=== PATIENT | male | born 1950 | race Caucasian/White ===

== ENCOUNTER 2017-03-09 08:51 | Emergency (ER) | payer OTHER ==
[2017-03-09 08:59] VITALS: BP 145/96
--- NOTE | 2017-03-09 09:33 | UC ---
Respiratory Complaint HPI - HPI Summary HPI Summary: PT HAS HAD INCREASE IN COUGH AND FEELING OF CHEST RATTLING/WHEEZE OVER THE PAST 1-2 MONTHS. NO FEVER. COUGH IS KEEPING HIM UP AT NIGHT. ALBUTEROL INHALER NOT HELPING ANYMORE. 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 NO RECENT TRAVEL. NO HEMOPTYSIS. NO SOB. 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 Negative: Dyspnea, Fever, Chills, Pleuritic Chest Pain, Hemoptysis, Dizziness, Calf Pain, Calf Swelling, Edema, URI, Nasal Congestion, Hoarseness, Sinus Discomfort - Allergies/Home Medications Allergies/Adverse Reactions: Allergies Allergy/AdvReac Type Severity Reaction Status Date / Time No Known Allergies Allergy Verified 01/19/16 16:34 PMH/Surg Hx/FS Hx/Imm Hx Cardiovascular History: Hypertension - Surgical History Surgical History: Yes Surgery Procedure, Year, and Place: 1999 - Cardiac ablation for SVT [place]. 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 Right hand skin grafts 2014 - Family History Known Family History: Positive: Cardiac Disease, Hypertension - Social History Alcohol Use: Rare Alcohol Amount: 1-2 Substance Use Type: None Smoking Status (MU): Former Smoker Type: Cigarettes Length of Time of Smoking/Using Tobacco: 20 YRS Have You Smoked in the Last Year: No When Did the Patient Quit Smoking/Using Tobacco: Quit 1984 - Immunization History Most Recent Influenza Vaccination: Fall 2012 Most Recent Tetanus Shot: 09/09/14 Most Recent Pneumonia Vaccination: never Review of Systems Constitutional: Negative Skin: Negative ENT: Negative Respiratory: Cough Cardiovascular: Negative All Other Systems Reviewed And Are Negative: Yes Physical Exam Triage Information Reviewed: Yes Appearance: Well-Appearing, No Pain Distress, Well-Nourished Vital Signs: Initial Vital Signs Temp 97.8 F 03/09/17 08:53 Pulse 72 03/09/17 08:53 Resp 18 03/09/17 08:53 BP 145/96 03/09/17 08:53 Pulse Ox 99 03/09/17 08:53 Vital Signs Reviewed: Yes Eyes: Positive: Conjunctiva Clear ENT: Positive: Hearing grossly normal, Pharynx normal, TMs normal Neck: Positive: Supple, Nontender, No Lymphadenopathy Respiratory: Positive: No respiratory distress, No accessory muscle use, Other: - RATTLY LUNG SOUNDS BASES Cardiovascular Exam: Normal Abdomen Description: Positive: Soft Musculoskeletal: Positive: No Edema Neurological: Positive: Alert Psychological: Positive: Normal Response To Family, Age Appropriate Behavior Skin: Negative: rashes UC Diagnostic Evaluation - Laboratory O2 Sat by Pulse Oximetry: 99 - Radiology Xray Interpretation: Positive (See Comments) - TRACE LEFT PLEURAL EFFUSION VERSUS PLEURAL THICKENING ON CXR Radiology Interpretation Completed By: Radiologist Respiratory Course/Dx - Differential Dx/Diagnosis Provider Diagnoses: COUGH/LEFT PLEURAL EFFUSION VERSUS PLEURAL THICKENING Discharge - Discharge Plan Condition: Stable Disposition: HOME Prescriptions: Azithromycin [Azithromycin 500 MG TAB] 500 mg PO DAILY #5 tab Patient Education Materials: Pleural Effusion (ED), Chronic Cough (ED) Referrals: Melissa Duque MD [Medical Doctor] - Raymond Ford NP [Nurse Practitioner] - 2 Days Additional Instructions: PLEURAL EFFUSION VS. PLEURAL THICKENING SEEN ON CHEST XRAY TODAY. YOU WOULD LIKELY BENEFIT FROM A CT SCAN FOR FURTHER EVALUATION. CALL YOUR NEW PCP TOMORROW MORNING FOR AN APPT. YOU MAY ALSO CALL PULMONOLOGY (DR. DUQUE) FOR AN APPT. NO CLEAR INDICATION FOR ANTIBIOTICS BUT IF YOUR SYMPTOMS DO NOT IMPROVE AND YOU CAN NOT BE SEEN BY YOUR PCP OR CARE PROGRAM DIRECTOR PROMPTLY, OKAY TO FILL RX FOR ANTIBIOTIC TO SEE IF IT IS HELPFUL. IF YOU START IT TAKE IT FOR THE FULL 5 DAYS. GO TO ER WITHOUT FAIL IF YOU COUGH UP BLOOD OR DEVELOP CHEST PAIN, SHORTNESS OF BREATH, NAUSEA, SWEATS, FEVER, DIZZINESS OR ANY OTHER CONCERNING SYMPTOMS.
--- NOTE | 2017-03-09 10:11 | RAD ---
INDICATION: Cough. COMPARISON: Comparison is made with prior studies from December 06, 2007 and June 09, 2014. TECHNIQUE: Dual-energy PA and lateral views of the chest were obtained. FINDINGS: The heart is within normal limits in size. There is bilateral apical pleural-parenchymal scarring which is unchanged. There is slight increased density in the right paratracheal region which is unchanged from the prior 2 exams. The lungs are otherwise clear. There is blunting of the left posterior costophrenic angle suggestive of a trace pleural effusion versus pleural thickening. IMPRESSION: TRACE LEFT PLEURAL EFFUSION VERSUS PLEURAL THICKENING.
== END 2017-03-09 10:50 | disposition home or self-care (01) ==
LOC: UCEAST 08:51
DX: R05 Cough (principal); R91.8 Other nonspecific abnormal finding of lung field; I10 Essential (primary) hypertension; H54.41 Blindness, right eye, normal vision left eye; Z87.891 Personal history of nicotine dependence
CPT/HCPCS: 71020; 99212; G0463

== ENCOUNTER 2017-03-14 19:03 | Emergency (ER) | payer OTHER ==
--- NOTE | 2017-03-14 21:19 | RAD ---
INDICATION: Productive cough for 3 weeks. Presyncope. History of tobacco use. COMPARISON: March 09, 2017 TECHNIQUE: Dual energy PA and routine lateral views of the chest were obtained. REPORT: Elevated lung volumes and both diffuse mild prominence of the interstitial markings and patchy rarefaction of the mid to upper lung zone interstitial markings. Mild apical pleural-parenchymal scarring. No alveolar consolidation suspicious for pneumonia, focal pulmonary lesion, pleural effusion, pneumothorax. The heart, pulmonary vasculature, and mediastinal contours are unremarkable. No rib fracture evident. IMPRESSION: Stigmata of obstructive lung disease. No acute pulmonary or cardiac process evident.
[2017-03-14 21:21] LABS: Hematocrit 44 % (42-52); Hemoglobin 14.8 g/dl (14.0-18.0); Mean Corpuscular HGB Conc 34 g/dl (31-36); Mean Corpuscular Hemoglobin 32 pg (27-31); Mean Corpuscular Volume 95 fL (80-94); Mean Platelet Volume 10 um3 (7.4-10.4); Red Blood Count 4.66 10^6/ul (4.0-5.4); Red Cell Distribution Width 13 % (10.5-15); White Blood Count 7.6 10^3/ul (3.5-10.8)
--- NOTE | 2017-03-14 21:30 | ED ---
Herbie Portillo Thomas, scribed for Riley Blandon MD on 03/14/17 at 2039 . Complex/Multi-Sys Presentation - HPI Summary HPI Summary: The pt is a 66 y/o M c/o a nonproductive cough that began 3 weeks ago. The cough has become progressively worse since onset, and has been its worst today. He additionally c/o near-syncope and "hands shaking and feet shaking". Five days ago, he was a patient at [facility] and had an CXR that revealed trace left pleural effusion versus pleural thickening. He was prescribed Abx for 5 days. He is scheduled for a CT scan but the first available appointment is on April 10. The patient is a former smoker and quit 30 years ago. 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 - History Of Current Complaint Chief Complaint: EDSyncope Time Seen by Provider: 03/14/17 20:33 Hx Obtained From: Patient Onset/Duration: Lasting Weeks - a month ago, Still Present, Worse Since - this AM Timing: Constant Associated Signs And Symptoms: Positive: Other - POS: nonproductive cough, "hands and feet shaking", near-syncope - Allergies/Home Medications Allergies/Adverse Reactions: Allergies Allergy/AdvReac Type Severity Reaction Status Date / Time No Known Allergies Allergy Verified 03/14/17 19:20 PMH/Surg Hx/FS Hx/Imm Hx Previously Healthy: No Cardiovascular History: Reports: Hx Hypertension - WELL CONTROLLED, Other Cardiovascular Problems/Disorders - Cardiac ablation 2003 Sensory History: Reports: Hx Contacts or Glasses - Glasses Denies: Hx Hearing Aid Opthamlomology History: Reports: Hx Contacts or Glasses - Glasses - Surgical History Surgery Procedure, Year, and Place: 1999 - Cardiac ablation for SVT [place]. 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 Right hand skin grafts 2014 Hx Anesthesia Reactions: No Infectious Disease History: Denies: Hx Clostridium Difficile, Hx Hepatitis, Hx Human Immunodeficiency Virus (HIV), Hx of Known/Suspected MRSA, Hx Shingles, Hx Tuberculosis, Hx Known/ Suspected VRE, Hx Known/Suspected VRSA, History Other Infectious Disease, Traveled Outside the [place] in Last 30 Days - Family History Known Family History: Positive: Cardiac Disease, Hypertension - Social History Alcohol Use: Rare Alcohol Amount: 1-2 Substance Use Type: Reports: None Hx Tobacco Use: No Smoking Status (MU): Former Smoker Type: Cigarettes Length of Time of Smoking/Using Tobacco: 20 YRS Have You Smoked in the Last Year: No Review of Systems Constitutional: Negative Eyes: Negative ENT: Negative Cardiovascular: Negative Positive: Cough - nonproductive, onset 1 month ago Gastrointestinal: Negative Genitourinary: Negative Musculoskeletal: Negative Skin: Negative Neurological: Other - POS: "hands and feet shaking" Positive: Syncope - near Psychological: Normal All Other Systems Reviewed And Are Negative: Yes Physical Exam Triage Information Reviewed: Yes Vital Signs On Initial Exam: Initial Vitals Temp Pulse Resp BP Pulse Ox 96.9 F 92 20 151/100 97 03/14/17 19:15 03/14/17 19:15 03/14/17 19:15 03/14/17 19:15 03/14/17 19:15 Vital Signs Reviewed: Yes Appearance: Positive: Well-Appearing, No Pain Distress Skin: Positive: Warm Head/Face: Positive: Normal Head/Face Inspection Eyes: Positive: JOVI ENT: Positive: Hearing grossly normal Neck: Positive: Supple Respiratory/Lung Sounds: Positive: Clear to Auscultation, Breath Sounds Present Cardiovascular: Positive: RRR Abdomen Description: Positive: Nontender, Soft Bowel Sounds: Positive: Present Musculoskeletal: Positive: Strength/ROM Intact Neurological: Positive: Alert, Oriented to Person Place, Time Psychiatric: Positive: Affect/Mood Appropriate Diagnostics - Vital Signs Vital Signs Temp Pulse Resp BP Pulse Ox 03/14/17 19:15 96.9 F 92 20 151/100 97 - Laboratory Lab Results: Lab Results 03/14/17 Range/Units 21:10 WBC 7.6 (3.5-10.8) 10^3/ul RBC 4.66 (4.0-5.4) 10^6/ul Hgb 14.8 (14.0-18.0) g/dl Hct 44 (42-52) % MCV 95 H (80-94) fL MCH 32 H (27-31) pg MCHC 34 (31-36) g/dl RDW 13 (10.5-15) % Plt Count 150 (150-450) 10^3/ul MPV 10 (7.4-10.4) um3 Neut % (Auto) 59.5 (38-83) % Lymph % (Auto) 21.7 L (25-47) % Wilson % (Auto) 7.5 (1-9) % Eos % (Auto) 10.8 H (0-6) % Baso % (Auto) 0.5 (0-2) % Absolute Neuts (auto) 4.5 (1.5-7.7) 10^3/ul Absolute Lymphs (auto) 1.6 (1.0-4.8) 10^3/ul Absolute Monos (auto) 0.6 (0-0.8) 10^3/ul Absolute Eos (auto) 0.8 H (0-0.6) 10^3/ul Absolute Basos (auto) 0 (0-0.2) 10^3/ul Absolute Nucleated RBC 0.02 10^3/ul Nucleated RBC % 0.2 Result Diagrams: 03/14/17 21:10 03/14/17 21:10 Lab Statement: Any lab studies that have been ordered have been reviewed, and results considered in the medical decision making process. - Radiology GLASS SETTER Xray Interpretation: No Acute Changes - Stigmata of obstructive lung disease. No acute pulmonary or cardiac process evident. Radiology Interpretation Completed By: Radiologist - CT CT Chest CT Interpretation: No Acute Changes - 1. No evidence for pneumonia. 2. Indeterminant RIGHT suprahilar RIGHT upper lobe and superior segment LEFT lower lobe pulmonary nodules. 3. Enlarged AP window and RIGHT paratracheal lymph nodes. 4. While the noted pulmonary nodules are only borderline large enough for accurate assessment with PET/CT a PET/CT should be considered to attempt to assess the nodules as well as the mediastinal lymph nodes given increased risk for bronchogenic carcinoma due to previous asbestos exposure. CT Interpretation Completed By: Radiologist - EKG 19:26 Cardiac Rate: NL - 82 EKG Interpretation: NSR Re-Evaluation - Re-Evaluation First Eval Re-Evaluation Time: 22:46 Change: Improved - results d/w pt, will f/u with pcp this week Complex Multi-Symp Course/Dx - Diagnoses Provider Diagnoses: Cough Discharge - Discharge Plan Condition: Improved Disposition: HOME Referrals: Kobi Hansen MD [Primary Care Provider] - 3 Days The documentation as recorded by the Herbie ocampo Thomas accurately reflects the service I personally performed and the decisions made by , Riley Blandon MD.
[2017-03-14 21:36] LABS: Albumin 4.1 g/dL (3.2-5.2); BUN/Creatinine Ratio 21.5 (8-20); Calcium 9.8 mg/dL (8.6-10.3); EGFR African American 104.2 (>60); Globulin 2.9 g/dL (2-4); Potassium 3.8 mmol/L (3.5-5.0); Total Bilirubin 0.4 mg/dL (0.2-1.0)
--- NOTE | 2017-03-14 22:40 | RAD ---
INDICATION: Productive cough, shortness of breath, pleural thickening. History of asbestos exposure. On antibiotics. COMPARISON: Chest radiograph of the same date TECHNIQUE: Multidetector CT images were obtained from the lung apices to the upper abdomen. Evaluation of the viscera is limited without IV contrast. REPORT: Mild apical pleural-parenchymal scarring. Small calcified granuloma at the lateral segment of the RIGHT middle lobe. 0.6 cm axial plane maximum dimension by 0.8 cm maximum dimension cephalocaudal noncalcified nodule at the RIGHT suprahilar region of the RIGHT upper lobe reference image 25. 0.6 cm maximum dimension. Fissural nodule at the superior segment of the LEFT lower lobe reference image 39. Negative for pleural effusions. 1.1 cm short axis RIGHT paratracheal lymph node. 0.9 cm short axis subcarinal lymph node. 1.5 cm short axis AP window lymph node. Negative for cardiomegaly or pericardial effusion. Mild prominence of the ascending segment of the thoracic aorta measuring up to 4.1 cm diameter at the level of the aortic arch. Unremarkable Limited images through the upper abdomen. Negative for suspicious thoracic osseous lesions. Rhodes images saved on the [facility]ACS. IMPRESSION: 1. No evidence for pneumonia. 2. Indeterminant RIGHT suprahilar RIGHT upper lobe and superior segment LEFT lower lobe pulmonary nodules. 3. Enlarged AP window and RIGHT paratracheal lymph nodes. 4. While the noted pulmonary nodules are only borderline large enough for accurate assessment with PET/CT a PET/CT should be considered to attempt to assess the nodules as well as the mediastinal lymph nodes given increased risk for bronchogenic carcinoma due to previous asbestos exposure.
[2017-03-14 23:34] VITALS: BP 130/87
== END 2017-03-14 23:33 | disposition home or self-care (01) ==
LOC: ED 19:03
DX: R05 Cough (principal); R55 Syncope and collapse; Z87.891 Personal history of nicotine dependence
CPT/HCPCS: 36415; 71020; 71250; 80053; 83605; 85025; 93005; 99282

== ENCOUNTER 2017-04-02 12:03 | Day surgery (SDC) | payer OTHER ==
[~2017-04-02 12:03] MED LIST: Buffered Lidocaine 0.9% SYRIN* 5 ML/SYR SYRINGE INTRADERM ONE; Famotidine IV* 10 MG/ML 2 ML (20 mg) IV ONE
[2017-04-02] MEDS ORDERED: Famotidine IV* 10 MG/ML 2 ML (20 mg) ONE (12:13)
[2017-04-02] MEDS ORDERED: Buffered Lidocaine 0.9% SYRIN* 5 ML/SYR SYRINGE ONE (12:13)
[2017-04-02] MEDS ORDERED: Levalbuterol 1.25MG/0.5ML NEB ONE (12:42)
[2017-04-02] MEDS ORDERED: Levalbuterol 0.63MG/3ML NEB INH ONE (12:48)
[2017-04-02] MEDS ORDERED: DiMENhydriNATE IV* 50 MG/ML VIAL IV PUSH PRN (12:49)
[2017-04-02] MEDS ORDERED: Acetaminophen TAB* 325 MG PO PRN (12:49)
[2017-04-02] MEDS ORDERED: oxyCODONE TAB* 5 MG TAB PO PRN (12:49)
[2017-04-02] MEDS ORDERED: HYDROmorphone* 1 MG/ML 1 ML SYR IV PRN (12:49)
[2017-04-02] MEDS ORDERED: Propofol* 10 MG/ML 20 ML BTL IV PUSH ONE (12:55)
[2017-04-02] MEDS ORDERED: Dexamethasone IV* 4 MG/ML 1 ML (4 MG) ONE (12:55)
[2017-04-02] MEDS ORDERED: fentaNYL* 50 MCG/ML 2 ML VIAL (100 MCG VIAL) ONE ×2 (12:55→13:27)
[2017-04-02] MEDS ORDERED: Midazolam* 1 MG/ML 5 ML VIAL (5 MG) ONE (12:55)
[2017-04-02] MEDS ORDERED: Lidocaine 2% PF * 5 ML VIAL ONE (12:55)
[2017-04-02] MEDS ORDERED: Ondansetron INJ* 2 MG/ML VIAL ONE (12:55)
[2017-04-02] MEDS ORDERED: Succinylcholine* 20 MG/ML 10 ML VIAL ONE (13:00)
[2017-04-02 15:26] VITALS: BP 128/72
--- NOTE | 2017-04-03 12:18 | PRO ---
BRONCHOSCOPY REPORT: DATE OF PROCEDURE: 04/02/17 PROCEDURE PERFORMED: Bronchoscopy with endobronchial ultrasound-guided fine- needle aspiration from station R4, L4, and station 7 lymph nodes. PREPROCEDURAL DIAGNOSES: Cough, mediastinal and hilar adenopathy. ANESTHESIA: General anesthesia, refer to anesthesiologist's note for further details. ANESTHESIOLOGIST: Dr. Marilou Cuellar. PROCEDURE IN DETAIL: Informed consent was obtained from the patient after all the risks and benefits of procedure were thoroughly explained. The patient with complaint of cough, mostly dry in nature with evidence of mediastinal adenopathy. The patient was placed supine on the operating room table. Time- out was agreed on by attending staff. The patient was intubated with size 8.0 endotracheal tube. Bronchoscope was inserted through endotracheal tube. Endotracheal tube positioning was confirmed to be 2 cm above the level of mariella. No endobronchial lesions were noted. Thin secretions were noted and were suctioned out. There is evidence of bronchomalacia. Bronchoscope was then withdrawn and EBUS bronchoscope was inserted. R4 lymph node was enlarged and was accessed with 3 passes. Rapid on- site evaluation revealed lymphatic tissue with no granulomata or malignant cells. Specimen was also placed in RPMI for evaluation of lymphoma. L4 lymph node was accessed with 2 passes. Rapid on -site evaluation revealed adequate lymphatic tissue, no malignant cells or granulomata was seen. Normal-appearing lymphatic tissue was noted. Station 7 was accessed with 2 passes. Rapid on-site evaluation revealed lymphatic tissue , normal appearing and no malignant cells or granulomata. EBUS bronchoscopy was then withdrawn. The patient tolerated the procedure well. He was extubated and seen in recovery area in optimal condition. Specimen was sent to the lab for cytological and flow cytometry evaluation. [id number]/[facility] #: [id number] [facility]
== END 2017-04-02 15:00 | disposition home or self-care (01) ==
LOC: OR 12:03
PROVIDERS: ATTEND Internal Medicine
DX: R59.0 Localized enlarged lymph nodes (principal); R93.8 Abnormal findings on diagnostic imaging of other specified body structures; J44.9 Chronic obstructive pulmonary disease, unspecified; Z87.891 Personal history of nicotine dependence; I10 Essential (primary) hypertension; Z77.090 Contact with and (suspected) exposure to asbestos
CPT/HCPCS: 88172; 88173; 88177; 88184; 88185; 88188; 88305; A9270-GY; J0330; J1100; J2250; J2405; J2704; J3010

== ENCOUNTER 2017-05-21 08:25 | Emergency (ER) | payer OTHER ==
[2017-05-21] MEDS ORDERED: Meclizine TAB* 12.5 MG PO ONE (10:21)
[2017-05-21] MEDS ORDERED: NS 0.9% 1000 ML* 2,000 ML IV ONE (10:21)
[2017-05-21] MEDS ORDERED: Ondansetron INJ* 2 MG/ML VIAL IV ONE (10:21)
[2017-05-21 10:43] LABS: Hematocrit 47 % (42-52); Hemoglobin 16.1 g/dl (14.0-18.0); Mean Corpuscular HGB Conc 34 g/dl (31-36); Mean Corpuscular Hemoglobin 32 pg (27-31); Mean Corpuscular Volume 93 fL (80-94); Mean Platelet Volume 9 um3 (7.4-10.4); Red Blood Count 5.05 10^6/ul (4.0-5.4); Red Cell Distribution Width 13 % (10.5-15); White Blood Count 10.8 10^3/ul (3.5-10.8)
--- NOTE | 2017-05-21 10:54 | RAD ---
INDICATION: Pneumonia, CHF. COMPARISON: Comparison is made with a prior chest x-ray study from March 14, 2017. TECHNIQUE: A portable view of the chest was obtained. FINDINGS: Cardiac and mediastinal contours appear to be within normal limits. The lungs are clear. No pleural effusion is seen. IMPRESSION: NO EVIDENCE FOR ACUTE DISEASE.
[2017-05-21 11:03] LABS: Albumin 4.1 g/dL (3.2-5.2); BUN/Creatinine Ratio 16.5 (8-20); C Reactive Protein 4.19 mg/L (< 5.00); Calcium 10.3 mg/dL (8.6-10.3); EGFR African American 106.9 (>60); EGFR Non-African American 83.1 (>60); Globulin 3.7 g/dL (2-4); Potassium 4.4 mmol/L (3.5-5.0); Total Bilirubin 0.6 mg/dL (0.2-1.0); Total Protein 7.8 g/dL (6.4-8.9)
[2017-05-21 11:08] LABS: Urine Bilirubin Negative (Negative); Urine Glucose Negative (Negative); Urine Nitrite Negative (Negative)
--- NOTE | 2017-05-21 11:11 | RAD ---
INDICATION: Dizziness. COMPARISON: There are no prior studies available for comparison. TECHNIQUE: Contiguous axial sections of the brain were obtained from the skull base to the vertex without contrast. FINDINGS: The ventricles, cisterns and sulci are within normal limits. There is a small focal area of decreased attenuation adjacent to the frontal horn of the left lateral ventricle suggestive of an old lacunar infarct. No other focal abnormalities or mass effect are seen. There is no evidence for hemorrhage. No significant focal osseous abnormality is seen. The visualized portion of the paranasal sinuses and mastoid air cells appear clear. IMPRESSION: 1. NO EVIDENCE FOR GROSS ACUTE INFARCT, MASS EFFECT OR HEMORRHAGE. 2. 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
[2017-05-21 11:23] LABS: TSH (Thyroid Stimulating Horm) 1.2 mcIU/mL (0.34-5.60)
[2017-05-21 13:06] VITALS: BP 128/68
--- NOTE | 2017-05-21 15:45 | ED ---
Leland Portillo Angela, scribed for Denys Jean MD on 05/21/17 at 1014 . Dizziness - HPI Summary HPI Summary: This pt is a 5 y/o male presenting to [facility] c/o sudden onset of dizziness and nausea while sitting at his desk today at 0745. He notes associated symptoms of diaphoresis. Pt reports that at onset he felt the room was spinning, but later felt like passing out. Pt states that movement and position change exacerbates his dizziness. He states he was well yesterday and that this has never happened to him before. Pt denies chest pain, SOB, slurred speech, inability to walk, rhinorrhea, cough, cold. He reports a ringing in his ear that is chronic. Pt walks 3-4 miles a day for work. He notes a PMHx of cardiac ablasion for tachycardia 10 years ago, but since then he has been doing well. Pt take anti- hypertensive medications. Pt notes losing his right eye at the age of 1 when glass got inside his eye. 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 Negative: Vomiting, Chest Pain, SOB, Palpitations, Unsteady Gait, Inability to Walk, Slurred Speech - Allergies/Home Medications Allergies/Adverse Reactions: Allergies Allergy/AdvReac Type Severity Reaction Status Date / Time No Known Allergies Allergy Verified 04/02/17 12:17 PMH/Surg Hx/FS Hx/Imm Hx Cardiovascular History: Reports: Hx Hypertension - on med, Other Cardiovascular Problems/Disorders - Cardiac ablation for SVT 1999 - [place] Sensory History: Reports: Hx Contacts or Glasses - Glasses Denies: Hx Hearing Aid Opthamlomology History: Reports: Hx Contacts or Glasses - Glasses - Surgical History Surgery Procedure, Year, and Place: 1999 - Cardiac ablation for SVT [place]. 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 [place] [facility] [place] Anesthesia Reactions: No Infectious Disease History: No Infectious Disease History: Denies: Hx Clostridium Difficile, Hx Hepatitis, Hx Human Immunodeficiency Virus (HIV), Hx of Known/Suspected MRSA, Hx Shingles, Hx Tuberculosis, Hx Known/ Suspected VRE, Hx Known/Suspected VRSA, History Other Infectious Disease, Traveled Outside the [place] in Last 30 Days - Family History Known Family History: Positive: Cardiac Disease, Hypertension - Social History Alcohol Use: Occasionally Alcohol Amount: 2-3 BEERS PER WEEK Substance Use Type: Reports: None Hx Tobacco Use: No Smoking Status (MU): Former Smoker Type: Cigarettes Amount Used/How Often: 1 PPD FOR 20 YEARS Length of Time of Smoking/Using Tobacco: 20 YRS Have You Smoked in the Last Year: No Review of Systems Positive: Skin Diaphoresis. Negative: Fever, Chills Eyes: Negative ENT: Negative Negative: Chest Pain Negative: Shortness Of Breath Positive: Nausea Genitourinary: Negative Musculoskeletal: Negative Skin: Negative Neurological: Other - dizziness Negative: Slurred Speech All Other Systems Reviewed And Are Negative: Yes Physical Exam - Summary Physical Exam Summary: The patient is well-nourished in no acute distress and in no acute pain. The skin is warm and skin color reflects adequate perfusion. Patient is a little clammy but not diaphoretic. HEENT: The head is normocephalic and atraumatic. The pupil on the right is nj , does follow but is unable to see. The pupil on the left has nystagmus. The conjunctivae are clear and without drainage. Nares are patent and without drainage. Mouth reveals moist mucous membranes and the throat is without erythema and exudate. The external ears are intact. The ear canals are patent and without drainage. The tympanic membranes are intact. Neck is supple with full range of motion and non-tender. Respiratory: Chest is non-tender. Lungs are clear to auscultation and breath sounds are symmetrical and equal. Cardiovascular: Hear is regular rate and rhythm. There is no murmur or rub auscultated. There is no peripheral edema and pulses are symmetrical and equal. There are good pulses distally. Abdomen: The abdomen is soft and non-tender. There are normal bowel sounds heard in all four quadrants. Musculoskeletal: There is no back pain noted. Extremities are non-tender with full range of motion. There is good capillary refill. There is no peripheral edema or calf tenderness elicited. Neurological: Patient is alert and oriented to person, place and time. The patient has symmetrical motor strength in all four extremities. There is no motor weakness in the upper extremities and lower extremities. Psychiatric: The patient has an appropriate affect and does not exhibit any anxiety or depression. Triage Information Reviewed: Yes Vital Signs On Initial Exam: Initial Vitals Temp Pulse Resp BP Pulse Ox 97.4 F 60 17 151/94 98 05/21/17 08:28 05/21/17 08:28 05/21/17 08:28 05/21/17 08:28 05/21/17 08:28 Vital Signs Reviewed: Yes - [place] Coma Scale Best Eye Response: 4 - Spontaneous Best Motor Response: 6 - Obeys Commands Best Verbal Response: 5 - Oriented Coma Scale Total: 15 Diagnostics - Vital Signs Vital Signs Temp Pulse Resp BP Pulse Ox 05/21/17 09:00 58 18 97 05/21/17 08:35 60 18 99 05/21/17 08:30 97.4 F 60 17 151/94 98 05/21/17 08:28 97.4 F 60 17 151/94 98 - Laboratory Lab Results: Lab Results 05/21/17 05/21/17 05/21/17 Range/Units 10:28 10:28 10:28 WBC 10.8 (3.5-10.8) 10^3/ul RBC 5.05 (4.0-5.4) 10^6/ul Hgb 16.1 (14.0-18.0) g/dl Hct 47 (42-52) % MCV 93 (80-94) fL MCH 32 H (27-31) pg MCHC 34 (31-36) g/dl RDW 13 (10.5-15) % Plt Count 229 (150-450) 10^3/ul MPV 9 (7.4-10.4) um3 Neut % (Auto) 84.6 H (38-83) % Lymph % (Auto) 9.1 L (25-47) % Lander % (Auto) 4.7 (1-9) % Eos % (Auto) 1.2 (0-6) % Baso % (Auto) 0.4 (0-2) % Absolute Neuts (auto) 9.1 H (1.5-7.7) 10^3/ul Absolute Lymphs (auto) 1.0 (1.0-4.8) 10^3/ul Absolute Monos (auto) 0.5 (0-0.8) 10^3/ul Absolute Eos (auto) 0.1 (0-0.6) 10^3/ul Absolute Basos (auto) 0 (0-0.2) 10^3/ul Absolute Nucleated RBC 0 10^3/ul Nucleated RBC % 0 Sodium 136 (133-145) mmol/L Potassium 4.4 (3.5-5.0) mmol/L Chloride 101 (101-111) mmol/L Carbon Dioxide 28 (22-32) mmol/L Anion Gap 7 (2-11) mmol/L BUN 15 (6-24) mg/dL Creatinine 0.91 (0.67-1.17) mg/dL Est GFR ( Amer) 106.9 (>60) Est GFR (Non-Af Amer) 83.1 (>60) BUN/Creatinine Ratio 16.5 (8-20) Glucose 104 H (70-100) mg/dL Lactic Acid (0.5-2.0) mmol/L Calcium 10.3 (8.6-10.3) mg/dL Magnesium 2.0 (1.9-2.7) mg/dL Total Bilirubin 0.60 (0.2-1.0) mg/dL AST 19 (13-39) U/L ALT 21 (7-52) U/L Alkaline Phosphatase 61 (34-104) U/L Troponin I 0.00 (<0.04) ng/mL C-Reactive Protein 4.19 (< 5.00) mg/L B-Natriuretic Peptide 28 ( - 100) pg/mL Total Protein 7.8 (6.4-8.9) g/dL Albumin 4.1 (3.2-5.2) g/dL Globulin 3.7 (2-4) g/dL Albumin/Globulin Ratio 1.1 (1-3) TSH 1.20 (0.34-5.60) mcIU/mL Urine Color Urine Appearance Urine pH (5-9) Ur Specific [place] (1.010-1.030) Urine Protein (Negative) Urine Ketones (Negative) Urine Blood (Negative) Urine Nitrate (Negative) Urine Bilirubin (Negative) Urine Urobilinogen (Negative) Ur Leukocyte Esterase (Negative) Urine Glucose (Negative) 05/21/17 05/21/17 Range/Units 10:28 10:40 WBC (3.5-10.8) 10^3/ul RBC (4.0-5.4) 10^6/ul Hgb (14.0-18.0) g/dl Hct (42-52) % MCV (80-94) fL MCH (27-31) pg MCHC (31-36) g/dl RDW (10.5-15) % Plt Count (150-450) 10^3/ul MPV (7.4-10.4) um3 Neut % (Auto) (38-83) % Lymph % (Auto) (25-47) % Lander % (Auto) (1-9) % Eos % (Auto) (0-6) % Baso % (Auto) (0-2) % Absolute Neuts (auto) (1.5-7.7) 10^3/ul Absolute Lymphs (auto) (1.0-4.8) 10^3/ul Absolute Monos (auto) (0-0.8) 10^3/ul Absolute Eos (auto) (0-0.6) 10^3/ul Absolute Basos (auto) (0-0.2) 10^3/ul Absolute Nucleated RBC 10^3/ul Nucleated RBC % Sodium (133-145) mmol/L Potassium (3.5-5.0) mmol/L Chloride (101-111) mmol/L Carbon Dioxide (22-32) mmol/L Anion Gap (2-11) mmol/L BUN (6-24) mg/dL Creatinine (0.67-1.17) mg/dL Est GFR ( Amer) (>60) Est GFR (Non-Af Amer) (>60) BUN/Creatinine Ratio (8-20) Glucose (70-100) mg/dL Lactic Acid 1.2 (0.5-2.0) mmol/L Calcium (8.6-10.3) mg/dL Magnesium (1.9-2.7) mg/dL Total Bilirubin (0.2-1.0) mg/dL AST (13-39) U/L ALT (7-52) U/L Alkaline Phosphatase (34-104) U/L Troponin I (<0.04) ng/mL C-Reactive Protein (< 5.00) mg/L B-Natriuretic Peptide ( - 100) pg/mL Total Protein (6.4-8.9) g/dL Albumin (3.2-5.2) g/dL Globulin (2-4) g/dL Albumin/Globulin Ratio (1-3) TSH (0.34-5.60) mcIU/mL Urine Color Yellow Urine Appearance Cloudy Urine pH 7.0 (5-9) Ur Specific [place] 1.011 (1.010-1.030) Urine Protein Negative (Negative) Urine Ketones Negative (Negative) Urine Blood Negative (Negative) Urine Nitrate Negative (Negative) Urine Bilirubin Negative (Negative) Urine Urobilinogen Negative (Negative) Ur Leukocyte Esterase Negative (Negative) Urine Glucose Negative (Negative) Result Diagrams: 05/21/17 10:28 05/21/17 10:28 Lab Statement: Any lab studies that have been ordered have been reviewed, and results considered in the medical decision making process. - Radiology Chest XR Xray Interpretation: No Acute Changes - IMPRESSION: No evidence for acute disease. ED physician has reviewed this radiology report and agrees. Radiology Interpretation Completed By: Radiologist - CT Brain CT CT Interpretation: No Acute Changes - IMPRESSION: 1. No evidence for gross acute infarct, mass effect or hemorrhage. 2. 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 ED physician has reviewed this radiology report and agrees. CT Interpretation Completed By: Radiologist - EKG 0827 Cardiac Rate: NL - 61 bpm EKG Rhythm: Sinus Rhythm EKG Interpretation: No ST Elevation. Normal axis. No STEMI. Re-Evaluation - Re-Evaluation First Eval Re-Evaluation Time: 12:33 Comment: Pt is feeling much better. He is feeling some residual dizziness. Dizzy Course/Dx - Course Assessment/Plan: Elevated BP noted. Labs, EKG, chest XR, and CT brain were obtained. In the ED course, pt was given IV fluids, zofran, and meclizine. Chest XR shows no evidence for acute disease. Brain CT reveals 1. no evidence for gross acute infarct, mass effect or hemorrhage. 2. 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 UA is negative. Pt will be discharged home in stable condition. - Diagnoses Differential Diagnosis/HQI/PQRI: Benign Paroxysmal Positional Vertigo, Coronary Artery Disease, CVA, Hypovolemia, Labyrinthitis, Meniere's Disease, Metabolic Abnormality Provider Diagnoses: Vertigo Discharge - Discharge Plan Condition: Stable Disposition: HOME Prescriptions: Meclizine HCl [Meclizine 25] 25 mg PO QID #30 tab Patient Education Materials: Vertigo (ED) Referrals: Raymond Ford, [employer] [Primary Care Provider] - Additional Instructions: Your blood pressure was elevated during today's visit. Please follow up with your primary care provider. The documentation as recorded by the Leland ocampo Angela accurately reflects the service I personally performed and the decisions made by , Denys Jean MD.
== END 2017-05-21 13:05 | disposition home or self-care (01) ==
LOC: ED 08:25
DX: R42 Dizziness and giddiness (principal); Z87.891 Personal history of nicotine dependence; I10 Essential (primary) hypertension
CPT/HCPCS: 36415; 70450; 71010; 80053; 81003; 83605; 83735; 83880; 84443; 84484; 85025; 86140; 93005; 96360; 99282; A9270-GY; J2405

== ENCOUNTER → 2019-04-16 14:57 | Emergency (ER) | payer OTHER ==
[~2019-04-16 14:57] MED LIST changes: -Buffered Lidocaine 0.9% SYRIN* 5 ML/SYR SYRINGE INTRADERM ONE; -Famotidine IV* 10 MG/ML 2 ML (20 mg) IV ONE; +Meclizine TAB* 12.5 MG PO ONE
--- NOTE | 2019-04-16 15:36 | ED ---
Dizziness - HPI Summary HPI Summary: A 68 y/o male presents to [facility] with a chief complaint of worsened dizziness today. He says that he has been having minor dizzy spells for the past few months, but today he was dizzy, nauseous and sweating. He describes his dizziness as feeling like he is getting up really fast. When moving his head he has some room spinning dizziness. The patient also c/o diaphoresis. He says that he was in the ED one year ago for the same thing. He denies any numbness, weakness or tingling. He says that he also has a sister who has dizzy spells. He takes Losartan for HTN. FHx of alzheimer's. He says that he had an episode where he was tachycardic in the 200s years ago. 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 - History Of Current Complaint Chief Complaint: EDDizziness Stated Complaint: DIZZY PER EMS Time Seen by Provider: 04/16/19 15:25 Hx Obtained From: Patient Onset/Duration: Still Present Timing: Constant Severity Initially: Mild Severity Currently: Mild Character: Room Spinning, Dizzy Aggravating Factor(s): Nothing Alleviating Factor(s): Nothing Associated Signs And Symptoms: Positive: Diaphoresis. Negative: Fever - Allergies/Home Medications Allergies/Adverse Reactions: Allergies Allergy/AdvReac Type Severity Reaction Status Date / Time No Known Allergies Allergy Verified 04/16/19 15:23 Home Medications: Home Medications Losartan/Hydrochlorothiazide [Losartan Potassium/Hydroc 50-12.5 mg] 1 tab PO DAILY 04/16/19 [History Confirmed 04/16/19] PMH/Surg Hx/FS Hx/Imm Hx Cardiovascular History: Reports: Hx Hypertension - on med, Other Cardiovascular Problems/Disorders - Cardiac ablation for SVT 1999 - [place] Sensory History: Reports: Hx Contacts or Glasses - Glasses Denies: Hx Hearing Aid Opthamlomology History: Reports: Hx Contacts or Glasses - Glasses - Surgical History Surgery Procedure, Year, and Place: 1999 - Cardiac ablation for SVT [place]. 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 Right hand skin grafts 2014 - [facility] [place] Hx Anesthesia Reactions: No Infectious Disease History: No Infectious Disease History: Denies: Hx Clostridium Difficile, Hx Hepatitis, Hx Human Immunodeficiency Virus (HIV), Hx of Known/Suspected MRSA, Hx Shingles, Hx Tuberculosis, Hx Known/ Suspected VRE, Hx Known/Suspected VRSA, History Other Infectious Disease, Traveled Outside the [place] in Last 30 Days - Family History Known Family History: Positive: Cardiac Disease, Hypertension - Social History Alcohol Use: Rare Alcohol Amount: 2-3 BEERS PER WEEK Substance Use Type: Reports: None Hx Tobacco Use: No Smoking Status (MU): Former Smoker Type: Cigarettes Amount Used/How Often: 1 PPD FOR 20 YEARS Length of Time of Smoking/Using Tobacco: 20 YRS Have You Smoked in the Last Year: No Review of Systems Positive: Skin Diaphoresis. Negative: Fever Positive: Nausea Neurological: Other - positive: dizziness Negative: Weakness, Paresthesia, Numbness All Other Systems Reviewed And Are Negative: Yes Physical Exam - Summary Physical Exam Summary: Constitutional: Well-developed, Well-nourished, Alert. (-) Distressed Skin: Warm, Dry HENT: Normocephalic; Atraumatic Eyes: Pupil of right eye has clouding of the cornea and no vision which is chronic, left eye horizontal nystagmus on leftward gaze Neck: Musculoskeletal ROM normal neck. (-) JVD, (-) Nuchal rigidity Cardio: Rhythm regular, rate normal, Heart sounds normal; Intact distal pulses; Radial pulses are 2+ and symmetric. (-) Murmur Pulmonary/Chest wall: Effort normal. (-) Respiratory distress, (-) Wheezes, (-) Rales Abd: Soft. (-) Tenderness, (-) Distension, (-) Guarding, (-) Rebound Musculoskeletal: (-) Edema Lymph: (-) Cervical adenopathy Neuro: Alert, PERRL, Oriented x3, Strength normal, Cranial nerves II-XII are grossly intact. SILT, Strength 5/5 BUE and BLE, (-) Dysmetria, ambulates w steady gait. Psych: Mood and affect Normal Triage Information Reviewed: Yes Vital Signs On Initial Exam: Initial Vitals Temp Pulse Resp BP Pulse Ox 98.5 F 64 16 140/95 97 04/16/19 15:15 04/16/19 15:15 04/16/19 15:15 04/16/19 15:15 04/16/19 15:15 Vital Signs Reviewed: Yes Diagnostics - Vital Signs Vital Signs Temp Pulse Resp BP Pulse Ox 04/16/19 15:17 65 100 04/16/19 15:16 62 140/95 97 04/16/19 15:15 98.5 F 64 16 140/95 97 - Laboratory Result Diagrams: 04/16/19 15:37 04/16/19 15:36 Lab Statement: Any lab studies that have been ordered have been reviewed, and results considered in the medical decision making process. - EKG 15:28 Cardiac Rate: NL - 62 bpm EKG Rhythm: Sinus Rhythm Summary of EKG Findings: An EKG at 15:28 reveals normal sinus rhythm at 62 bpm, no ischemic changes. Re-Evaluation - Re-Evaluation First Eval Re-Evaluation Time: 16:54 Change: Improved Comment: Pt is feeling much better. He will be discharged with Meclizine. Will return for new or worsening neuro symptoms. Dizzy Course/Dx - Course Course Of Treatment: 68-year-old male with a history of hypertension and vertigo in the past presents with vertiginous symptoms. Reports that symptoms are resolving. Neuro exam unremarkable aside from left horizontal nystagmus. Negative workup in [address] Suspect peripheral cause. Dizziness ddx: Posterior stroke/tia - neg CT head w recurrent episodes, lower suspicion. Vertigo: most likely BPPV but differential includes Menniere's - no tinnitis, not lasting hours, labyrinthitis - no h/o infectious symptoms, no tinnitus - Diagnoses Provider Diagnoses: Vertigo Discharge - Sign-Out/Discharge Documenting (check all that apply): Patient Departure - DC Patient Received Moderate/Deep Sedation with Procedure: No - Discharge Plan Condition: Stable Disposition: HOME Prescriptions: Meclizine TAB* [Antivert 12.5 TAB*] 25 mg PO TID PRN #30 tab PRN Reason: Vertigo Referrals: Raymond Ford NP [Primary Care Provider] - Luis Escobar MD [Medical Doctor] - (As needed) Additional Instructions: You were seen in the emergency department for vertigo. This is likely secondary to a peripheral cause of vertigo such as Mnire's disease or BPPV Your labs were unremarkable. Continue meclizine as needed for vertigo. He may also try Faustino maneuver We have continued symptoms please follow-up with your primary care doctor or neurologist. If any studies were not completed at the time of discharge you will be called with the relevant results. Please follow up with your primary care doctor in next 2-3 days and return to emergency department for new numbness, tingling, weakness, worsening or concerning symptoms. - Billing Disposition and Condition Condition: STABLE Disposition: Home - Attestation Statements Document Initiated by Yadira: Yes Documenting Scribe: Leonides Castillo Provider For Whom Yadira is Documenting (Include Credential): Alesha Díaz MD Scribe Attestation: I, Leonides Castillo, scribed for Alesha Díaz MD on 04/16/19 at 1914. Scribe Documentation Reviewed: Yes Provider Attestation: The documentation as recorded by the Leonides ocampo accurately reflects the service I personally performed and the decisions made by , Alesha Díaz MD Status of Scribe Document: Viewed
[2019-04-16 16:24] LABS: Albumin 4.4 g/dL (3.2-5.2); Albumin/Globulin Ratio 1.6 (1-3); BUN/Creatinine Ratio 26.2 (8-20); Calcium 10.3 mg/dL (8.6-10.3); EGFR African American 82.9 (>60); EGFR Non-African American 68.5 (>60); Globulin 2.8 g/dL (2-4); Magnesium 2.1 mg/dL (1.9-2.7); Potassium 4.4 mmol/L (3.5-5.0); Total Bilirubin 0.5 mg/dL (0.2-1.0); Total Protein 7.2 g/dL (6.4-8.9)
[2019-04-16 16:39] LABS: ABS Eosinophils 0.1 10^3/ul (0-0.6); ABS Lymphocytes 1.2 10^3/ul (1.0-4.8); ABS Monocytes 0.5 10^3/ul (0-0.8); ABS Neutrophils 6.9 10^3/ul (1.5-7.7); Eosinophil % 1.3 %; Hematocrit 44 % (42-52); Hemoglobin 15.2 g/dL (14.0-18.0); Lymphocyte % 13.4 %; Mean Corpuscular HGB Conc 34 g/dL (31-36); Mean Corpuscular Hemoglobin 32 pg (27-31); Mean Corpuscular Volume 93 fL (80-94); Mean Platelet Volume 10.5 fL (7.4-10.4); Platelet Count 141 10^3/uL (150-450); Red Blood Count 4.79 10^6 /uL (4.18-5.48); Red Cell Distribution Width 13 % (10-15); White Blood Count 8.7 10^3/uL (3.5-10.8)
[2019-04-16 16:46] LABS: TSH (Thyroid Stimulating Horm) 0.99 mcIU/mL (0.34-5.60)
[2019-04-16 17:13] VITALS: BP 113/68
== END | disposition home or self-care (01) ==
LOC: ED 14:57
DX: R42 Dizziness and giddiness (principal); I10 Essential (primary) hypertension; Z87.891 Personal history of nicotine dependence; Z79.899 Other long term (current) drug therapy
CPT/HCPCS: 36415; 80053; 83735; 84443; 84484; 85025; 93005; 99282; A9270-GY

== ENCOUNTER 2019-09-20 11:09 | Emergency (ER) | payer OTHER ==
--- NOTE | 2019-09-20 11:20 | UC ---
Lower Extremity/Ankle HPI - HPI Summary HPI Summary: 69 yo male presents with ankle injury. He tells me that 1 week ago he missed a step and inverted his left ankle. Had some pain, but was ambulatory. He rested and applied ice. Since that time has been walking with only mild pain. Bruising and swelling have improved. Today he went back to work for the first time since the injury and noticed increased ankle pain and swelling. Denies numbness or tingling. - History of Current Complaint Stated Complaint: ANKLE INJURY Time Seen by Provider: 09/20/19 11:19 Onset/Duration: Sudden Onset Severity Initially: Moderate Severity Currently: Mild Pain Intensity: 3 Pain Scale Used: 0-10 Numeric - Allergies/Home Medications Allergies/Adverse Reactions: Allergies Allergy/AdvReac Type Severity Reaction Status Date / Time No Known Allergies Allergy Verified 09/20/19 11:20 Home Medications: Home Medications Aspirin 81 mg CHEW TAB* [Aspirin Low Dose TAB*] 81 mg PO DAILY 09/20/19 [ History Confirmed 09/20/19] Glucosam/Chondr/Collagn/Hyalur [ Glucosamine/Chondroiti] 1 cap PO DAILY [History Confirmed 09/20/19] Ibuprofen TAB* [Motrin TAB* 400 MG] 400 mg PO Q6H PRN 09/20/19 [History Confirmed 09/20/19] PMH/Surg Hx/FS Hx/Imm Hx - Additional Past Medical History Additional PMH: SVT Cardiovascular History: Hypertension - Surgical History Surgical History: Yes Surgery Procedure, Year, and Place: 1999 - Cardiac ablation for SVT [place]. 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 [place] [facility] [place] - Family History Known Family History: Positive: Cardiac Disease, Hypertension - Social History Lives: With Family Alcohol Use: Rare Alcohol Amount: 2-3 BEERS PER WEEK Substance Use Type: None Smoking Status (MU): Former Smoker Type: Cigarettes Amount Used/How Often: 1 PPD FOR 20 YEARS Length of Time of Smoking/Using Tobacco: 20 YRS Have You Smoked in the Last Year: No When Did the Patient Quit Smoking/Using Tobacco: 1985 Household Exposure Type: Cigarettes - Immunization History Most Recent Influenza Vaccination: Fall 2012 Most Recent Tetanus Shot: 09/09/14 Most Recent Pneumonia Vaccination: never Review of Systems All Other Systems Reviewed And Are Negative: No Constitutional: Positive: Negative Skin: Positive: Negative Respiratory: Positive: Negative Cardiovascular: Positive: Negative Neurovascular: Positive: Negative Musculoskeletal: Positive: Other: - Left ankle injury Neurological: Positive: Negative Psychological: Positive: Negative Physical Exam - Summary Physical Exam Summary: GENERAL: NAD. WDWN. No pain distress. SKIN: No rashes, sores, lesions, or open wounds. CHEST: No accessory muscle use. Breathing comfortably and in no distress. CV: Pulses intact PT and DP. Cap refill <2seconds MSK: LEFT ANKLE: Mild TTP about posterior lateral malleolus. Moderate edema about ankle joint - worse on lateral malleolus. Mild ecchymosis at toes 2-4. FROM. Strength 5/5. No increased laxity. Negative [place] test. NEURO: Alert. Sensations intact and symmetric B/L LEs PSYCH: Age appropriate behavior. Triage Information Reviewed: Yes Vital Signs: Vital Signs: Temp Pulse Resp BP Pulse Ox 96.7 F 70 16 134/93 100 09/20/19 11:22 09/20/19 11:22 09/20/19 11:22 09/20/19 11:22 09/20/19 11:22 Vital Signs Reviewed: Yes Diagnostics - Radiology Ankle XR Radiology Interpretation Completed By: Radiologist Summary of Radiographic Findings: REPORT AND IMPRESSION: #. Significant soft tissue swelling over the lateral malleolus and less marked generalized soft tissue swelling. #. Suggestion of small talocrural joint effusion. #. Small grossly nondisplaced avulsion fracture fragments at the caudal margin of the lateral malleolus most likely related to anterior talofibular ligament avulsion. #. Congruent ankle mortise. Lower Extremity Course/Dx - Course Course Of Treatment: XR as above. Discussed results with pt. Pt prefers to see Ortho in [place] as he goes to [place]. Pt placed in CAM boot, advised to RICE, and f/u with Ortho within 1 weekl - Differential Dx/Diagnosis Provider Diagnosis: Avulsion fracture of lateral malleolus of left fibula Discharge ED - Sign-Out/Discharge Documenting (check all that apply): Patient Departure All imaging exams completed and their final reports reviewed: Yes - Discharge Plan Condition: Stable Disposition: HOME Patient Education Materials: Ankle Fracture (ED), Avulsion Fracture (ED) Referrals: Mari AN,Rigo Comer [Primary Care Provider] - Melony Fam MD [Medical Doctor] - As Soon As Possible Additional Instructions: If you develop a fever, shortness of breath, chest pain, new or worsening symptoms - please call your PCP or go to the ED immediately. Your blood pressure was mildly elevated at todays visit. Please see your primary provider within 4 weeks for recheck and re-evaluation. 1) Rest, Ice, and elevate your ankle to decrease pain and swelling 2) Use the walking boot as much as possible 3) I recommend that you call Orthopedics at the number below to schedule an appointment within 1 week for a recheck - Billing Disposition and Condition Condition: STABLE Disposition: Home - Attestation Statements Provider Attestation: This patient was not seen by me. I was available for consult. Chart reviewed. ROBERT
[2019-09-20 11:26] VITALS: BP 134/93
== END 2019-09-20 12:14 | disposition home or self-care (01) ==
LOC: UCEAST 11:09
DX: S82.62XA Displaced fracture of lateral malleolus of left fibula, initial encounter for closed fracture (principal); I10 Essential (primary) hypertension; H54.7 Unspecified visual loss; Z87.891 Personal history of nicotine dependence; X50.1XXA Overexertion from prolonged static or awkward postures, initial encounter; Y92.9 Unspecified place or not applicable
CPT/HCPCS: 99212; G0463